=== PATIENT | female | born 1935 | race Caucasian/White ===

== ENCOUNTER 2022-05-02 12:16 | Emergency (ER) | payer OTHER ==
[~2022-05-02] VITALS: Ht 162.6 cm; Wt 72.6 kg
[2022-05-02] MEDS ORDERED: DICL100T85 PO (14:06)
[2022-05-02 14:25] VITALS: BP 134/67
[2022-05-02] MEDS ORDERED: KETOROLAC 30MG VIAL (30MG/ML) IM ONE (14:30)
== END 2022-05-02 14:29 | disposition home or self-care (01) ==
LOC: EDH 12:16
DX: M25.512 Pain in left shoulder (principal); Z90.49 Acquired absence of other specified parts of digestive tract
CPT/HCPCS: 99283; 71045; 73030; 96372; J1885